=== PATIENT | female | born 1985 | race African-American/Black ===

== ENCOUNTER → 2016-12-11 | Outpatient (CLI) | payer BC ==
[~2016-12-11] MED LIST: BIRTH CONTROL PILL PO; CALCIUM + VITA1 EAC1 PO; MULTI VITAMIN1 EACH PO; NO MEDICATIONS
--- NOTE | ~2016-12-11 | CR97 ---
[facility] A Service of [facility] RADIOLOGY TEXT RESULTS PATIENT: KERRY ANDRE LOCATION: [facility] : 85 UNIT #: [id number] AGE: [address]: Zoran Montez III, MD SEX: F ORDER DR: [id number] [place], [place] [address] [id number] O MR#: [id number] Acc #: [id number] NAME: KERRY ANDRE : 1985 SEX: F STUDY DATE/TIME: 12/11/2016 8:42 UNIT: [facility] ROOM: STUDY DESCRIPTION: CR Esophagram Attending Physician: Zoran Montez III, M.D. Referring Physician: Zoran Montez III, M.D. Ordering Physician: Zoran Montez III, M.D. Primary Care Physician: Aditya Mccann MEDICAL IMAGING REPORT This report is preliminary unless electronic signature is present EXAM Esophagram. HISTORY Preoperative evaluation prior to Lap-Band placement. PROCEDURE Patient swallowed barium under fluoroscopy. Fluoro time 0.4 minutes. Total of 14 images were obtained. COMPARISON None FINDINGS No esophageal mass or stricture. No appreciable hiatal hernia. IMPRESSION Negative esophagram. Dictated by... German Alvarado M.D. THIS IS AN ELECTRONICALLY VERIFIED REPORT German Alvarado M.D. at 12/13/2016 9:51 PM ANIBAL/martin TD: 12/11/2016 17:37 JOB #: [id number] MEDICAL IMAGING REPORT [facility] A Service of [facility] RADIOLOGY TEXT RESULTS PATIENT: KERRY ANDRE LOCATION: [facility] : 85 UNIT #: [id number] AGE: [address]: Zoran Mnotez III, MD SEX: F ORDER DR: Page 1 of 1 COPY
--- NOTE | ~2016-12-11 | EKG ---
PATIENT: KERRY ANDRE UNIT #: [id number] Ventricular Rate: 75 BPM Atrial Rate: 75 BPM P-R Interval: 134 ms QRS Duration: 98 ms Q-T Interval: 362 ms QTC Calculation(Bezet): 404 ms P [place]: 59 degrees Calculated R [place]: -16 degrees Calculated T [place]: 57 degrees Diagnosis Line: Normal sinus rhythm Diagnosis Line: Normal ECG Diagnosis Line: No previous ECGs available Diagnosis Line: Confirmed by MARVIN DOUGHERTY MD ([id number]) on 12/11/2016 Diagnosis Line: 4:42:38 PM INTERPRETING MD: FARHAT GRADY
--- NOTE | ~2016-12-11 | CR63 ---
[facility] A Service of [facility] & [facility] RADIOLOGY TEXT RESULTS PATIENT: KERRY ANDRE LOCATION: [facility] : 85 UNIT #: [id number] AGE: [address]: Zoran Montez III, MD SEX: F ORDER DR: [id number] [facility] [address] [place], [place] [address] [id number] O MR#: [id number] Acc #: [id number] NAME: KERRY ANDRE : 1985 SEX: F STUDY DATE/TIME: 12/11/2016 8:41 UNIT: [facility] ROOM: STUDY DESCRIPTION: CR Chest 2 View Attending Physician: Zoran Montez III, M.D. Referring Physician: Zoran Montez III, M.D. Ordering Physician: Zoran Montez III, M.D. Primary Care Physician: Aditya Mccann MEDICAL IMAGING REPORT This report is preliminary unless electronic signature is present EXAM Chest, 12/11/2016 HISTORY 31-year-old woman for laparoscopic adjustable gastric band placement and possible paraesophageal hernia repair. Morbid obesity. FINDINGS Two-view chest is normal. Cardiac size and configuration are normal. Hilar structures and mediastinal contours are normal. Bilateral lungs are expanded and clear. IMPRESSION Large body habitus. Negative chest. Dictated by... Leno Moeller M.D. THIS IS AN ELECTRONICALLY VERIFIED REPORT Leno Moeller M.D. at 12/11/2016 11:28 AM Rob TD: 12/11/2016 10:59 JOB #: [id number] MEDICAL IMAGING REPORT Page 1 of 1 COPY
[2016-12-11 09:50] LABS: HEMATOCRIT 35.9 % (35.0-45.0); HEMOGLOBIN 11.5 gm/dL (12.0-16.0); MEAN CELL VOLUME 89.5 FL (83-96); MEAN CORPUSCULAR HEMOGLOBIN 28.6 PG (28-34); MEAN PLATELET VOLUME 9.6 FL (6.5-11.5); RED BLOOD COUNT 4.01 X10e (3.90-5.30); RED CELL DISTRIBUTION WIDTH 15.2 % (11.0-15.5)
[2016-12-11 10:38] LABS: ALBUMIN SERUM 3.8 g/dL (3.5-5.0); BILIRUBIN,TOTAL 0.5 mg/dL (0.2-2.0); BUN/CREATININE RATIO 12.85; CALCIUM SERUM 9.5 mg/dL (8.4-10.2); CREATININE SERUM 0.7 mg/dL (0.6-1.4); GLOM FILT RATE Estimated 133.8 mL/min (>60); POTASSIUM 3.7 mmol/L (3.5-5.1); PROTEIN TOTAL SERUM 6.9 g/dL (6.0-8.3)
== END | disposition home or self-care (01) ==
LOC: CRAD 08:19
PROVIDERS: Surgery
DX: Z01.818 Encounter for other preprocedural examination (principal)
CPT/HCPCS: 36415; 71020; 74220; 80053; 80061; 84443; 85027; 93005

== ENCOUNTER → 2017-05-12 | Day surgery (SDC) | payer BC ==
--- NOTE | ~2017-05-12 | OR ---
Unit #: [id number] #: [id number] Patient: KERRY ANDRE [id number] [facility] [address] [facility] [place], [place] [address] [id number] O MR#: [id number] NAME: KERRY ANDRE ROOM: Date of Procedure: 05/12/2017 Admission Date: 05/12/2017 Surgeon: Zoran Montez III, M.D. : 1985 Attending Physician: Zoran Montez III, M.D. Primary Care Physician: Aditya Mccann OPERATIVE REPORT PREOPERATIVE DIAGNOSIS Chronic morbid obesity. POSTOPERATIVE DIAGNOSIS Chronic morbid obesity. SECONDARY DIAGNOSIS Anterior paraesophageal hernia. PROCEDURE PERFORMED Laparoscopic adjustable gastric banding (AP standard with low-profile port) and laparoscopic paraesophageal hernia repair. DIRECTOR OF ADVERTISING SALES Dr. Rubens Robb. SPECIMENS None. COMPLICATIONS None apparent. ESTIMATED BLOOD LOSS Minimal. ANESTHESIA General endotracheal tube anesthesia. INDICATIONS FOR PROCEDURE This is a 31-year-old lady, who has chronic morbid obesity with a BMI of 44. She has been through the bariatric program at [facility] and understands risks and benefits of the procedure. DESCRIPTION OF PROCEDURE After consent was obtained, including the risks and benefits of slippage, erosion, port dysfunction, and possible failure of weight loss due to noncompliance, the patient was taken to the operating room and placed in the supine position. General anesthetic was administered and the abdomen was prepped and draped in standard surgical fashion. I began by making a 2 cm incision just above and to the left of the umbilicus. I used a Visiport to enter the peritoneal cavity without any Unit #: [id number] #: [id number] Patient: KERRY ANDRE difficulty. C02 pneumoperitoneum was then established. Next, I placed a 5 mm port in the right upper quadrant, a 5 mm Олег liver retractor in the subxiphoid region to provide exposure of the gastroesophageal junction. Next, a 10 mm port was placed in the left upper quadrant and a 5 mm port was placed in the left lateral subcostal region. I began by performing an examination of the GE junction to evaluate for a hiatal hernia. We then scored the peritoneal attachments overlying the angle of His. I then opened up the clear space in the gastrohepatic ligament, and then using 2 blunt graspers, I identified the small fat pad crossing over the right crura. I swept the fat anterior to the crura off the crura and using the pars flaccida, I created a retrogastric tunnel where the blunt grasper exited at the angle of His. Once I had made this tunnel safely, I then inserted an Allergan AP band into the abdominal cavity. This adjustable gastric band was then place around the upper part of the stomach and fastened and buckled anteriorly. We then tacked the lateral fundus over the band to the proximal pouch with 2 interrupted 0 Ethibond sutures. I then used a third stitch to imbricate the excess anterior stomach by going from the lesser curvature up towards where the last stitch was placed. We then had excellent hemostasis. I removed the Олег liver retractor. We then removed the port tubing through the initial port incision. The rest of the ports were removed, and the pneumoperitoneum was released. I then left a small tail on the tubing. We then attached the port to the excess band tubing. We placed a piece of Prolene mesh along the back side of the port and used a Prolene stitch to anchor this mesh in place. We then trimmed the excess mesh so that just a small footprint of mesh was in place behind the port. I then inserted the tubing back into the abdominal cavity, and we placed the port into a small pocket that was made just inferior to where our initial port incision was made. The mesh was in direct contact with the fascia, and this will scar in place to hold the port in place. We then injected all the port sites with 0.25% plain Marcaine, and I reapproximated the skin edges with interrupted 4-0 Vicryl subcuticular sutures. Steri-strips were then applied. The patient tolerated the procedure without any problems and returned to the recovery room in stable condition. ADDENDUM After exposure of the GE junction, the patient was noted to have a small to medium size anterior paraesophageal hernia. I scored the phrenoesophageal ligament, reduced the hernia defect including the hernia sac and after identifying both the right and left crura, I reapproximated the defect with an interrupted 0 Ethibond [id number] suture. I then proceed with the case as listed above. Dictated by... Zoran Montez III, M.D. VCL/ean TD: 05/13/2017 17:48 JOB #: [id number] Unit #: [id number] #: [id number] Patient: KERRY ANDRE OPERATIVE REPORT Page 1 of 1 X Zoran Montez III, MD PROCEDURE OPERATIVE NOTE
--- NOTE | ~2017-05-12 | CR7 ---
[facility] A Service of [facility] RADIOLOGY TEXT RESULTS PATIENT: KERRY ANDRE LOCATION: [facility] : 85 UNIT #: [id number] AGE: [address]: Zoran Montez III, MD SEX: F ORDER DR: [id number] [facility] [address] [facility] [place], [place] [address] [id number] O MR#: [id number] Acc #: [id number] NAME: KERRY ANDRE : 1985 SEX: F STUDY DATE/TIME: 05/12/2017 8:37 UNIT: [facility] ROOM: STUDY DESCRIPTION: CR Abdomen Single AP View Attending Physician: Zoran Montez III, M.D. Ordering Physician: Zoran Montez III, M.D. Primary Care Physician: Aditya Mccann MEDICAL IMAGING REPORT This report is preliminary unless electronic signature is present EXAM AP of the abdomen INDICATIONS Postop lap band placement. Initial exam. No comparisons. FINDINGS Lap band is in place. The angle with respect to the spine is 68 degrees. IMPRESSION Postop lap band placement. Dictated by... Arsh Collins M.D. THIS IS AN ELECTRONICALLY VERIFIED REPORT Arsh Collins M.D. at 05/13/2017 9:30 AM LIZZIE/zaki TD: 05/12/2017 09:59 JOB #: [id number] MEDICAL IMAGING REPORT Page 1 of 1 COPY
[2017-05-12 06:50] LABS: BASOPHIL# 0.1 X10e3 (0-0.3); BASOPHIL% 0.7 % (0-2.5); EOSINOPHIL# 0.5 X10e3 (0-0.7); EOSINOPHIL% 6.3 % (0.0-7.0); HEMATOCRIT 38.8 % (35.0-45.0); HEMOGLOBIN 12.7 gm/dL (12.0-16.0); LYMPHOCYTE# 3.9 X10e3 (1.0-3.5); LYMPHOCYTE% 46.4 % (17.0-45.0); MEAN CELL VOLUME 89.2 FL (83-96); MEAN CORPUSCULAR HEMOGLOBIN 29.3 PG (28-34); MEAN CORPUSCULAR HGB CONC 32.8 g/dL (30-36); MEAN PLATELET VOLUME 9.5 FL (6.5-11.5); MONOCYTE# 0.9 X10e3 (0-1.0); MONOCYTE% 10.4 % (3.0-12.0); NEUTROPHIL# 3.1 X10e3 (1.5-7.1); NEUTROPHIL% 36.2 % (40-75); PLATELET COUNT 235 X10e3 (140-420); RED BLOOD COUNT 4.35 X10e (3.90-5.30); RED CELL DISTRIBUTION WIDTH 15.2 % (11.0-15.5); WHITE BLOOD COUNT 8.5 X10e3 (4.0-10.5)
[2017-05-12 06:51] LABS: DIFF IND NO
[2017-05-12 07:34] LABS: ALBUMIN SERUM 4.5 g/dL (3.5-5.0); BILIRUBIN,TOTAL 0.8 mg/dL (0.2-2.0); BUN/CREATININE RATIO 8.88; CALCIUM SERUM 9.9 mg/dL (8.4-10.2); CREATININE SERUM 0.9 mg/dL (0.6-1.4); GLOM FILT RATE Estimated 98.8 mL/min (>60); POTASSIUM 3.8 mmol/L (3.5-5.1); PROTEIN TOTAL SERUM 8.2 g/dL (6.0-8.3)
== END | disposition home or self-care (01) ==
LOC: CSUR 06:03
PROVIDERS: Surgery
DX: E66.01 Morbid (severe) obesity due to excess calories (principal); K44.9 Diaphragmatic hernia without obstruction or gangrene; Z68.41 Body mass index [BMI] 40.0-44.9, adult; Z79.899 Other long term (current) drug therapy; Z98.51 Tubal ligation status
CPT/HCPCS: 74000; 80053; 80061; 84443; 84703; 85025; C1781; J0330; J0690; J1100; J1650; J1885; J2250; J2405; J2710; J3010